=== PATIENT | male | born 1945 | race Caucasian/White ===

== ENCOUNTER 2017-02-19 14:39 | Emergency (ER) | payer MEDICARE ==
[~2017-02-19 14:39] MED LIST: ASA CHILDREN'S81 MG PO; ASPIRIN EC81 MG PO; ATIVAN-DPS1 MG PO; COLACE-DPS100 MG PO; COZAAR DPS25 MG PO; DESYREL-DPS50 MG PO; FLEXERIL-DPS10 MG PO; FLOMAX DPS0.4 MG PO; FLONASE 0.05% D16 GM NS; FOLVITE-DPS1 MG PO; HEPARIN-NS25000 UNIT IV; IMDUR DPS30 MG PO; LIPITOR DPS40 MG PO; LIPITOR40 MG PO; MAALOX DPS30 ML PO; MELATONIN3 MG PO; MINIPRESS DPS1 MG PO; NEURONTIN DPS300 MG PO; NICOTINE PATCH1 EAC1 TP; NITROSTAT0.4 MG SL; OCEAN NASAL MIS45 ML NS; PHENERGAN DPS25 MG PO; PLAVIX75 MG PO; PROTONIX40 MG PO; REMERON DPS15 MG PO; SPIRIVA18 MCG IH; TEARS NATURAL D15 ML OU; TOPROL XL DPS25 MG PO; TOPROL XL50 MG PO; TYLENOL DPS325 MG PO; VITAMIN B1100 MG PO; ZESTRIL DPS2.5 MG PO; ZOLOFT DPS100 MG PO
--- NOTE | 2017-02-27 11:03 | ER ---
ADMIT: 02/19/2017 RM/LOC: ER [facility] MR#: [id number] [address] [facility] [address] [place], [place] [address] PAULA SUMNER [address] [facility] [address] [place] [address] Emergency Room Report SEX: M AGE: 71 : 1945 DATE: 02/19/2017 CHIEF COMPLAINT: Dizziness, headache behind both ears, intermittent chest pain, and diarrhea. HISTORY OF PRESENT ILLNESS: This is a 71-year-old, who is [facility] [place]. He came over mostly for this headache and dizziness that he has been having. Then, also tells me about having diarrhea for couple weeks. Also having intermittent chest pain that he takes nitroglycerin for intermittently, but he says that is normal for him. He has multiple bypass and stents in his heart. At this time, he does not have any chest pain. No shortness of breath. When he describes the dizziness, he says it is just kind of vague dizziness, almost vertigo. Does not feel like he is going to pass out. Chest x-ray and EKG are negative for any acute findings over-read by Dr. Edmondson and Dr. Lemus. CMP is normal except for glucose of 60. CK-MB, relative index, and troponin are all normal. CBC is normal. EKG shows a left bundle-branch block over-read by Dr. Edmondson. No ST elevation or depression. The patient feels okay to go back to treatment. He does have the open sore also on his right great toe. I told to follow up with kaiako kura [facility] over at the [place] to further evaluate because it has not been healing. It has been there since November. IMPRESSION: 1. Intermittent headaches. 2. Diarrhea for 2 weeks. 3. Open sore on right great toe. DISPOSITION: Stable at discharge. [facility]. LESTER Pérez / Etienne Edmondson MD / chava JOB #: [id number] CC: Etienne Edmondson MD, Attending Physician [facility] Physician, Family Physician
[2017-03-31] MEDS ORDERED: PROTONIX40 MG PO (12:35)
[2017-03-31] MEDS ORDERED: ZESTRIL DPS2.5 MG PO (12:35)
[2017-03-31] MEDS ORDERED: MELATONIN3 M1 PO (12:36)
[2017-03-31] MEDS ORDERED: THERA1 EACH PO (12:36)
[2017-03-31] MEDS ORDERED: MUCOSA400 MG PO (12:36)
[2017-03-31] MEDS ORDERED: TOPROL XL25 MG PO (12:37)
[2017-03-31] MEDS ORDERED: TYLENOL DPS325 MG PO (12:38)
[2017-03-31] MEDS ORDERED: NORCO 5-325 TA1 EACH PO (12:39)
[2017-03-31] MEDS ORDERED: PROAIR HFA8.5 GM IH (12:39)
[2017-03-31] MEDS ORDERED: METAMUCIL SF P3.4 GM PO (12:40)
[2017-03-31] MEDS ORDERED: ULTRAM DPS50 MG PO (12:41)
[2017-04-11] MEDS ORDERED: ASPIR 8181 MG PO (14:04)
[2017-04-11] MEDS ORDERED: FOLVITE-DPS1 MG PO (14:04)
[2017-04-11] MEDS ORDERED: ATORVASTATIN CA80 MG PO (14:04)
[2017-04-11] MEDS ORDERED: PROAIR RESPICL90 MCG IH (14:04)
[2017-04-11] MEDS ORDERED: FLONASE 0.05% D16 GM NS (14:05)
[2017-04-11] MEDS ORDERED: IMDUR DPS60 MG PO (14:05)
[2017-04-11] MEDS ORDERED: ZESTRIL DPS10 MG PO (14:06)
[2017-04-11] MEDS ORDERED: METOPROLOL SUC100 MG PO (14:07)
[2017-04-11] MEDS ORDERED: SPIRIVA18 MCG PO (14:08)
[2017-04-11] MEDS ORDERED: ZOLOFT DPS100 MG PO (14:08)
[2017-04-11] MEDS ORDERED: VITAMIN B1100 MG PO (14:08)
[2017-04-11] MEDS ORDERED: PLAVIX75 MG PO (14:08)
[2017-04-11] MEDS ORDERED: NITROSTAT0.4 MG SL (14:09)
[2017-04-11] MEDS ORDERED: FLOMAX DPS0.4 MG PO (14:09)
[2017-04-11] MEDS ORDERED: NICOTINE PATCH1 EAC1 TD (14:09)
[2017-04-11] MEDS ORDERED: RANEXA500 MG PO (14:10)
[2017-04-11] MEDS ORDERED: PREDNISONE1 MG PO (14:10)
[2017-04-11] MEDS ORDERED: SYMBICORT160 MCG/6 IH (14:11)
[2017-04-11] MEDS ORDERED: ALDACTONE DPS25 MG PO (14:12)
== END 2017-02-19 15:45 | disposition home or self-care (01) ==
LOC: ER 14:39
DX: R51 Headache (principal); R19.7 Diarrhea, unspecified; I25.10 Atherosclerotic heart disease of native coronary artery without angina pectoris; F43.12 Post-traumatic stress disorder, chronic; F17.210 Nicotine dependence, cigarettes, uncomplicated

== ENCOUNTER 2017-03-29 09:06 | Inpatient (IN) | payer MEDICARE ==
[~2017-03-29] VITALS: Ht 167.6 cm; Wt 62.9 kg
[2017-03-31] MEDS ORDERED: ZESTRIL DPS2.5 MG PO (12:35)
[2017-03-31] MEDS ORDERED: PROTONIX40 MG PO (12:35)
[2017-03-31] MEDS ORDERED: THERA1 EACH PO (12:36)
[2017-03-31] MEDS ORDERED: MELATONIN3 M1 PO (12:36)
[2017-03-31] MEDS ORDERED: MUCOSA400 MG PO (12:36)
[2017-03-31] MEDS ORDERED: TOPROL XL25 MG PO (12:37)
[2017-03-31] MEDS ORDERED: TYLENOL DPS325 MG PO (12:38)
[2017-03-31] MEDS ORDERED: NORCO 5-325 TA1 EACH PO (12:39)
[2017-03-31] MEDS ORDERED: PROAIR HFA8.5 GM IH (12:39)
[2017-03-31] MEDS ORDERED: METAMUCIL SF P3.4 GM PO (12:40)
[2017-03-31] MEDS ORDERED: ULTRAM DPS50 MG PO (12:41)
--- NOTE | 2017-03-31 19:50 | DS ---
ADMIT: 03/29/2017 RM/LOC: [facility] MR#: [id number] [address] [facility] [address] [place], [place] [address] PAULA SUMNER [address] [place] [address] Discharge Summary SEX: M AGE: 71 : 1945 ADMISSION DATE: 03/29/2017 DISCHARGE DATE: 03/30/2017 ATTENDING AT TIME OF DISCHARGE: Gwyn Kirkpatrick MD CONSULTATIONS: None. FINAL DIAGNOSES: 1. Acute hypoxic respiratory failure. 2. Acute chronic obstructive pulmonary disease exacerbation. 3. Positive troponin, likely demand ischemia. 4. Coronary artery disease. 5. Peripheral vascular disease. 6. Hypertension. 7. Tobacco abuse, ongoing. 8. History of alcohol abuse with recent sobriety. REASON FOR ADMISSION: The patient is a 71-year-old gentleman, who presented to the emergency room with some severe substernal chest pain. Cough. Shortness of breath. He initially required some BiPAP in the ER actually. Admitted to the ICU. HOSPITAL COURSE: The patient was admitted. Given steroids, bronchodilators, some diuresis in the ER. Responded well to this and was able to be transitioned out of the ICU very quickly. Off BiPAP. He, on exam, had quite a bit of wheezing. This improved dramatically prior to discharge. He felt much improved with resolution of his chest pain. His troponin is only ever so slightly elevated. It did not trend upward. His chest pain completely resolved prior to discharge. He has planned followup with Cardiology at the [place] this next week. DISCHARGE INSTRUCTIONS: He will discharge to home. Follow up with his [place] provider within the next 7 to 10 days. Follow up with the [place] [facility] next week as previously planned. He will finish a course of steroids for the next 10 days, 40 mg of prednisone for 5 days and 20 mg for 5 days. He will not be on any antibiotics. Otherwise on his home medications. I gave him 60 tramadol for his rest pain he has for his peripheral vascular disease until he is in to get this procedure done for that, which he is working toward. The patient is agreeable to plan. Gwyn Kirkpatrick MD/ macarena JOB #: [id number] CC: Gwyn Kirkpatrick MD, Attending Physician Gwyn Kirkpatrick MD, Family Physician ADMIT: 03/29/2017 RM/LOC: [facility] MR#: [id number] [address] [address] SUMNERPAULA MORE [address] [place] [address] Discharge Summary SEX: M AGE: 71 : 1945 Gokul Fang NP
--- NOTE | 2017-03-31 19:50 | HP ---
ADMIT: 03/29/2017 RM/LOC: 310 [facility] MR#: [id number] [address] [facility] [address] [place], [place] [address] PAULA SUMNER [address] [place] [address] History and Physical SEX: M AGE: 71 : 1945 DATE OF SERVICE: CHIEF COMPLAINT: Chest pain. HISTORY OF PRESENT ILLNESS: The patient is a 71-year-old gentleman, normally receives all of his care through the [place], sees Gokul Davison. He was hospitalized here in January. At that time was taken down to [place], it sounds like, for heart catheterization. He thinks he had had a stent placed. Either way, over the last week or so, he has had increasing cough. Sputum production. Yellow a little bit. Some postnasal drip. This is new for him. Does not chronically have. He is a long-term smoker. Recently increasing his smoking, he states. He has had increasing chest pain now. Substernal. Pleuritic. No fevers. No chills. No nausea. No vomiting. States he is scheduled for a stress test and evaluation with street worker next week down in [facility]. PAST MEDICAL HISTORY: 1. Extensive coronary artery disease history. 2. Peripheral vascular disease with planned right-sided upcoming bypass. 3. History of CABG. 4. Tobacco abuse ongoing. 5. Hypertension. 6. Hyperlipidemia. 7. Depression. 8. BPH. 9. COPD. 10.GERD. 11.History of PTSD. ALLERGIES: NONE. MEDICATIONS: Please see list for full details. It includes: 1. Plavix. 2. Nitroglycerin. 3. Albuterol. 4. Hydrocodone that he really takes. 5. Spiriva. 6. Fluticasone. 7. Aspirin. 8. Pantoprazole. 9. Folic acid. 10.Lisinopril. 11.Multivitamin. 12.Melatonin. 13.Sertraline. 14.Guaifenesin. 15.Thiamine. 16.Atorvastatin. 17.Metoprolol. ADMIT: 03/29/2017 RM/LOC: 310 [facility] MR#: [id number] [address] [facility] [address] [place], [place] [address] SUMNERPAULA MORE [address] [place] [address] History and Physical SEX: M AGE: 71 : 1945 18.Tamsulosin. 19.Imdur. Please see list for full details and dosages. FAMILY HISTORY: Significant for coronary artery disease in his family. SOCIAL HISTORY: He usually drinks heavily, but he has been sober for two months. Longstanding smoker for many, many years. REVIEW OF SYSTEMS: As per HPI. Otherwise, completely reviewed and negative. PHYSICAL EXAMINATION: VITAL SIGNS: Temperature 97.2, pulse 71, respiratory rate 18, blood pressure 125/64, saturating 95% on O2 at 2 L. Previously on BiPAP. GENERAL: He is alert and oriented x3. No acute distress. Pleasant. HEENT: Normocephalic, atraumatic. Pupils equal, round, and reactive to light and accommodation. Extraocular muscles intact. No icterus. Dry mucous membranes. NECK: No lymphadenopathy. Soft, supple. Trachea midline. LUNGS: He has some rhonchi, especially in his left lower base the greatest. He has symmetric thoracic excursion. A few rales at bases present bilaterally. HEART: Regular rate and rhythm. He has 1/6 systolic ejection murmur. No rubs. No gallops. ABDOMEN: Soft, nontender, and nondistended. Bowel sounds present. EXTREMITIES: No cyanosis, clubbing, or edema. SKIN: He has a right-sided dime-sized ulcer on the dorsum of his right great toe. No surrounding erythema or secondary infection. NEUROLOGICAL: No focal deficits noted. Cranial nerves II through XII are grossly intact. VASCULAR: Dorsal pedal pulses very faint bilaterally. LABORATORY AND X-RAY DATA: His troponin is slightly positive, 0.044. White count 10.4, hemoglobin 13.6, platelets 157, potassium 3.6, lactic acid 1.5, proBNP is 5751. Procalcitonin is negative. Chest x-ray is reviewed. He has some initial markings. Mild cardiomegaly on portable film. No acute infiltrate noted. EKG; he has no acute ST elevation. He has a left bundle branch block. ASSESSMENT: 1. Acute chronic obstructive pulmonary disease exacerbation. 2. Acute hypoxic respiratory failure. 3. Coronary artery disease history. 4. Tobacco abuse. ADMIT: 03/29/2017 RM/LOC: 310 [facility] MR#: [id number] [address] [address] [place] [address] History and Physical SEX: M AGE: 71 : 1945 5. Positive troponin. 6. Peripheral vascular disease. 7. Hypertension. PLAN: At this point in time, we will treat his acute COPD exacerbation. I think his chest pain is all from his coughing and costochondritis, but we will trend his troponin given his extensive history for now. We will continue his home medications in regard to his heart disease. Give him some steroids. Start some tramadol for his chest pain he has for his peripheral vascular disease. We will see how he does in the next day or two. Initially required BiPAP in the ER, but now he looks much better. Initially admitted to the ICU. We will put him in tele status for now. Gwyn Kirkpatrick MD/ chava JOB #: [id number] CC: Gwyn Kirkpatrick, Attending Physician Gwyn Kirkpatrick, Family Physician
--- NOTE | 2017-04-03 07:29 | ER ---
ADMIT: 03/29/2017 RM/LOC: 310 [facility] MR#: [id number] [address] [facility] [address] [place], [place] [address] PAULA SUMNER [address] [place] [address] Emergency Room Report SEX: M AGE: 71 : 1945 DATE: 03/29/2017 CHIEF COMPLAINT: Shortness of breath. HISTORY OF PRESENT ILLNESS: The patient is a 71-year-old male, comes in with intermittent worsening shortness of breath over the past 2 days. He states that he was very short of breath throughout the night, did not particularly want to come in the hospital, but it finally got so bad that he did this morning. He did call EMS and en-route, he was given 2 DuoNeb prior to arrival and his symptoms were significantly improved by the time he got here. He states he does have some tightness in his chest, but he states he has a diagnosis of angina and has tightness in his chest very often and states he typically uses 3-4 nitros a day. He denies any fevers or chills. He is not having any nausea or vomiting, change in bowel or bladder function or new leg swelling. PAST MEDICAL HISTORY: Significant for coronary artery disease with previous non STEMI x2, COPD, hyperlipidemia, peripheral vascular disease, GERD, pneumonia, depression, PTSD, and ischemic cardiomyopathy. PREVIOUS SURGERIES: He has had a right lower extremity bypass graft, 5-vessel CABG in 1998, non STEMI in with stent placement, and another non STEMI in with stent placement, appendectomy and back surgery. MEDICATIONS: See nurse's note. ALLERGIES: SEE NURSE'S NOTE. SOCIAL HISTORY: Smokes pack a day. Alcohol, has a long history of alcohol, use but states he quit a little over a month ago. PHYSICAL EXAMINATION: See T-sheet. Chest x-ray shows what may be CHF and there is some questionable infiltrate. CBC shows a white count of 10.5, hemoglobin 13.6. Chemistries show potassium of 3.6, otherwise unremarkable. Lactic acid is 1.5. BNP is 5751 and troponin 0.044. EMERGENCY DEPARTMENT COURSE: The patient presented, he was short of breath but was reporting he was feeling much better after he had gotten the DuoNeb. With his history of COPD, I went ahead and got an IV started, gave him Solu- Medrol and our workup was reassuring to that point. It appears like he was having COPD exacerbation with mild CHF symptoms. At this point, his chest pain seemed like it was his standard angina and with the chest x-ray findings of possible infiltrate, he was given an IV dose of Levaquin. I had contacted the [place] to see if we could arrange for patient to transfer to their facility, but he began having worsening shortness of breath and chest pain. At that ADMIT: 03/29/2017 RM/LOC: 310 [facility] MR#: [id number] [address] [place] [id number] [place] [address] Emergency Room Report SEX: M AGE: 71 : 1945 time, I got a repeat EKG and checked troponin and gave the patient nitroglycerin and aspirin. At this point, I am not comfortable having the patient being transferred to the [place] so we will be keeping him in our facility. He was given a dose of IV Lasix in the Emergency Department and placed on BiPAP which did significantly improve his shortness of breath. I contacted Dr. Kirkpatrick who is on for city call, who graciously agrees to admit the patient. DIAGNOSES: 1. Chronic obstructive pulmonary disease exacerbation. 2. Congestive heart failure. 3. Angina. 4. Shortness of breath. Ever Choudhary MD/ chava JOB #: [id number] CC: Gwyn Kirkpatrick MD, Attending Physician Gwyn Kirkpatrick MD, Family Physician
[2017-04-11] MEDS ORDERED: FOLVITE-DPS1 MG PO (14:04)
[2017-04-11] MEDS ORDERED: ASPIR 8181 MG PO (14:04)
[2017-04-11] MEDS ORDERED: PROAIR RESPICL90 MCG IH (14:04)
[2017-04-11] MEDS ORDERED: ATORVASTATIN CA80 MG PO (14:04)
[2017-04-11] MEDS ORDERED: FLONASE 0.05% D16 GM NS (14:05)
[2017-04-11] MEDS ORDERED: IMDUR DPS60 MG PO (14:05)
[2017-04-11] MEDS ORDERED: ZESTRIL DPS10 MG PO (14:06)
[2017-04-11] MEDS ORDERED: METOPROLOL SUC100 MG PO (14:07)
[2017-04-11] MEDS ORDERED: VITAMIN B1100 MG PO (14:08)
[2017-04-11] MEDS ORDERED: ZOLOFT DPS100 MG PO (14:08)
[2017-04-11] MEDS ORDERED: PLAVIX75 MG PO (14:08)
[2017-04-11] MEDS ORDERED: SPIRIVA18 MCG PO (14:08)
[2017-04-11] MEDS ORDERED: NICOTINE PATCH1 EAC1 TD (14:09)
[2017-04-11] MEDS ORDERED: FLOMAX DPS0.4 MG PO (14:09)
[2017-04-11] MEDS ORDERED: NITROSTAT0.4 MG SL (14:09)
[2017-04-11] MEDS ORDERED: PREDNISONE1 MG PO (14:10)
[2017-04-11] MEDS ORDERED: RANEXA500 MG PO (14:10)
[2017-04-11] MEDS ORDERED: SYMBICORT160 MCG/6 IH (14:11)
[2017-04-11] MEDS ORDERED: ALDACTONE DPS25 MG PO (14:12)
== END 2017-03-30 12:30 | disposition home or self-care (01) | DRG 189 ==
LOC: ER 09:06 → 3ICU 13:55 → 4PCU 22:39
PROVIDERS: ADMIT Internal Medicine
DX: J96.01 Acute respiratory failure with hypoxia (principal); I24.8 Other forms of acute ischemic heart disease; J44.1 Chronic obstructive pulmonary disease with (acute) exacerbation; I25.119 Atherosclerotic heart disease of native coronary artery with unspecified angina pectoris; I73.9 Peripheral vascular disease, unspecified; I10 Essential (primary) hypertension; I25.2 Old myocardial infarction; F17.210 Nicotine dependence, cigarettes, uncomplicated; N40.0 Benign prostatic hyperplasia without lower urinary tract symptoms; E78.5 Hyperlipidemia, unspecified; K21.9 Gastro-esophageal reflux disease without esophagitis; F32.9 Major depressive disorder, single episode, unspecified; F43.10 Post-traumatic stress disorder, unspecified; I25.5 Ischemic cardiomyopathy; Z95.1 Presence of aortocoronary bypass graft; Z95.5 Presence of coronary angioplasty implant and graft; Z79.82 Long term (current) use of aspirin; Z82.49 Family history of ischemic heart disease and other diseases of the circulatory system

== ENCOUNTER 2017-04-06 21:04 | Inpatient (IN) | payer MEDICARE ==
[~2017-04-06] VITALS: Ht 167.6 cm; Wt 64.3 kg
[~2017-04-06 21:04] MED LIST changes: +MELATONIN3 M1 PO; +METAMUCIL SF P3.4 GM PO; +MUCOSA400 MG PO; +NORCO 5-325 TA1 EACH PO; +PROAIR HFA8.5 GM IH; +THERA1 EACH PO; +TOPROL XL25 MG PO; +ULTRAM DPS50 MG PO
--- NOTE | 2017-04-07 20:11 | ER ---
ADMIT: 04/06/2017 RM/LOC: 432 [facility] MR#: [id number] [address] [facility] [place], [place] [address] PAULA SUMNER [id number] [place] [address] Emergency Room Report SEX: M AGE: 71 : 1945 DATE: 04/06/2017 CHIEF COMPLAINT: Right upper quadrant abdominal pain. HISTORY OF PRESENT ILLNESS: The patient is a 71-year-old male with significant coronary artery disease, recent hospitalization for non-STEMI on March 29 through , follow up at the [facility], where the patient is pending bilateral carotid endarterectomy, right femoral-popliteal bypass. Last hospitalized April 2016 for non STEMI, transferred to [facility] where he underwent a PTCA to in-stent stenosis, vein graft to the right posterior and diagonal artery. The patient continues to smoke up to a pack a day. The patient states he was eating a burrito and he developed right upper quadrant abdominal pain radiating to his back associated with increasing shortness of breath, left arm tingling. He took a nitro, trazodone, and hydrocodone before paramedics arrived, who then gave aspirin 324 mg chewed, and another nitroglycerin with slight improvement. The pain at max was 7, on arrival was 3. The patient states it feels similar though slightly different location than his previous angina. PAST MEDICAL HISTORY: ALLERGIES: NONE. MEDICATIONS: 1. Tylenol. 2. Artificial Tears. 3. Aspirin. 4. Lipitor. 5. Plavix. 6. Colace. 7. Folic acid. 8. Guaifenesin. 9. Imdur. 10.Lisinopril. 11.Imodium. 12.Melatonin. 13.Metoprolol. 14.Multivitamin. 15.Nitroglycerin patch. 16.Nitroglycerin p.r.n. 17.Protonix. 18.Sertraline. 19.Flomax. 20.Thiamine. 21.Spiriva. ILLNESSES: Coronary artery disease with recent echo showing EF of 15%, CHF, recent non-STEMI and previous non-STEMI, remote past carotid occlusive disease, gastric ulcer, GERD, hypertension, hyperlipidemia, COPD, chronic ADMIT: 04/06/2017 RM/LOC: 432 [facility] MR#: [id number] [address] [facility] [address] [place], [place] [address] [facility] [address] [facility] [place] [address] Emergency Room Report SEX: M AGE: 71 : 1945 nicotine abuse, chronic pain syndrome, PTSD with alcohol abuse, BPH, depression. Known left bundle-branch block. OPERATIONS: Coronary artery bypass x3 in 1998, FELIZ to LAD, FELIZ to OM and vein graft to RCA; PCI stent LAD, requiring intraaortic balloon pump, stent to vein graft, PDA in 2014, and PTCA to in-stent stenosis, right PDA in 2016; peripheral vascular disease with aortic bifemoral bypass and ligation of left common iliac aneurysm 1998; left common femoral artery thrombectomy, [place]-Robert graft to the left external iliac to the left common femoral artery in 1998; appendectomy; hemorrhoidectomy; bilateral carpal tunnel release; lumbar laminectomy with hardware; pilonidal cystectomy. SOCIAL HISTORY: . Continues to smoke with over 50-pack year history. Alcohol abuse, none recently. No illicit drugs. FAMILY HISTORY: Positive for coronary artery disease, both over and under age 55. REVIEW OF SYSTEMS: A 12-point review of systems negative for all other systems, illnesses, or operations except as outlined above. PHYSICAL EXAMINATION: VITAL SIGNS: Temperature 97.4, pulse 100, respirations 16, BP 122/86, SaO2 of 96% on room air. GENERAL: Anxious, nontoxic, non-diaphoretic without jaundice or icterus. HEENT: Normocephalic. No evidence of epistaxis, rhinorrhea, or otorrhea. NECK: Supple without lymphadenopathy or thyromegaly. CHEST: Breath sounds equal with expiratory wheeze noted throughout right greater than left. HEART: Tachy. Irregular without murmur, gallop, or edema. ABDOMEN: Slightly obese. Tender right upper quadrant reproducing chief complaint without mass or megaly. Bowel sounds hypoactive. EXTREMITIES: No evidence of Homans sign, synovitis, or dermatitis. NEURO: EOMI, PERRLA. No evidence of drift, dysarthria, or ataxia. Gait not assessed. MENTAL STATUS: Alert, oriented, and anxious without delusions, hallucinations, or abnormal thought content. MEDICAL DECISION MAKING: EKG shows atrial fibrillation with rapid ventricular response, left bundle-branch block, left atrial enlargement, only change is atrial fibrillation since 03/29/2017. Chest x-ray shows COPD. FINDINGS: WBC 13.9, hemoglobin 13.3, platelets 245, lactic 1.9, CRP 0.42, potassium 3.4, glucose 116, troponin 0.063, elevated from 0.042 last hospitalization, normal coags. The patient was treated with Zofran, Toradol, and Dilaudid with relief of discomfort. Solu-Medrol, magnesium, 2 DuoNebs with marked improvement of his respiratory distress. ACS heparin was initiated in department. Remainder of ADMIT: 04/06/2017 RM/LOC: 432 [facility] MR#: [id number] [address] [address] [place] [address] Emergency Room Report SEX: M AGE: 71 : 1945 amiodarone that paramedics initiated was infused with no conversion or significant slowing. Discussed case with Dr. Parekh, who agreed to admit, gave orders to nursing staff. Due to the patient's presentation, findings, and intervention, 30 minutes of critical care is warranted. DIAGNOSES: 1. Acute exacerbation of chronic obstructive pulmonary disease. 2. Type 2 myocardial infarction. 3. Severe peripheral vascular disease, pending bilateral carotid endarterectomy, and right femoral-popliteal bypass. RECOMMENDATION: Admit inpatient PCU for Dr. Parekh. ADMISSION DISCHARGE CONDITION: Stable. CODE: The patient is a full code. Misael Sousa MD/ shawnl JOB #: [id number] CC: Gal Parekh MD, Attending Physician Gal Parekh MD, Family Physician
[2017-04-11] MEDS ORDERED: PROAIR RESPICL90 MCG IH (14:04)
[2017-04-11] MEDS ORDERED: ATORVASTATIN CA80 MG PO (14:04)
[2017-04-11] MEDS ORDERED: ASPIR 8181 MG PO (14:04)
[2017-04-11] MEDS ORDERED: FOLVITE-DPS1 MG PO (14:04)
[2017-04-11] MEDS ORDERED: FLONASE 0.05% D16 GM NS (14:05)
[2017-04-11] MEDS ORDERED: IMDUR DPS60 MG PO (14:05)
[2017-04-11] MEDS ORDERED: ZESTRIL DPS10 MG PO (14:06)
[2017-04-11] MEDS ORDERED: METOPROLOL SUC100 MG PO (14:07)
[2017-04-11] MEDS ORDERED: SPIRIVA18 MCG PO (14:08)
[2017-04-11] MEDS ORDERED: VITAMIN B1100 MG PO (14:08)
[2017-04-11] MEDS ORDERED: PLAVIX75 MG PO (14:08)
[2017-04-11] MEDS ORDERED: ZOLOFT DPS100 MG PO (14:08)
[2017-04-11] MEDS ORDERED: NICOTINE PATCH1 EAC1 TD (14:09)
[2017-04-11] MEDS ORDERED: FLOMAX DPS0.4 MG PO (14:09)
[2017-04-11] MEDS ORDERED: NITROSTAT0.4 MG SL (14:09)
[2017-04-11] MEDS ORDERED: RANEXA500 MG PO (14:10)
[2017-04-11] MEDS ORDERED: PREDNISONE1 MG PO (14:10)
[2017-04-11] MEDS ORDERED: SYMBICORT160 MCG/6 IH (14:11)
[2017-04-11] MEDS ORDERED: ALDACTONE DPS25 MG PO (14:12)
--- NOTE | 2017-04-12 16:17 | HP ---
ADMIT: 04/06/2017 RM/LOC: 432 [facility] MR#: [id number] [address] [facility] [place], [place] [address] PAULA SUMNER [address] [facility] [place] [address] History and Physical SEX: M AGE: 71 : 1945 DATE OF SERVICE: 04/07/2017 HISTORY OF PRESENT ILLNESS: Mr. Pancho Sumner is a 71-year-old man with past medical history significant for coronary artery disease status post multivessel CABG as well as PCI and history of stent thrombosis, alcohol abuse, and tobacco abuse, COPD, PTSD, depression, hypertension, peripheral artery disease status post bypass, BPH, heart failure with reduced ejection fraction of 20-15% who presents to the emergency room via ambulant with increasing chest pressure and pain. The patient states that he was in his usual state of health until yesterday when he noticed that in the early afternoon he was having some chest pressure or pain. He states that he then had another episode when he was eating supper at about 4-5 p.m. and got some numbness in his back with some radiation to the right shoulder. He states that it is similar to his previous cardiac pain before. The chest pain is present with activity and can be present when he is moving around a bit as well. He also states that he feels like it might be somewhat his COPD exacerbations in the past although he is using minimal oxygen at this point in time. He does state that he did cut down on his cigarettes within the last week, but then recently over the last couple of days has started to use more cigarettes again. He is currently up to a pack per day. He has been better about taking his inhalers for his COPD lately. He was recently hospitalized here on 03/29 to 03/30 for a COPD exacerbation. At that point in time, he was needing BiPAP initially and then improved with IV steroids as well as aggressive pulmonary toilet. He did have some chest pain at that point in time, but it was mainly reproducible on exam. He did have a slight elevation in his troponin that was thought to be secondary to demand ischemia. He was discharged on 03/30/2017 and then had an appointment [facility] with Dr. Ramirez. This occurred 04/02 to 04/03. He states that they did not repeat a stress test or catheterization on him at that point in time, because they had found records from a few months ago where he had these done. He states that Dr. Ramirez told him that he may need to be evaluated for an ICD. He states that when he was at home with this new chest pain, he took a nitroglycerin as well as hydrocodone and trazodone. This did not seem to alleviate his symptoms, so he called EMS. EMS provided him with 2 nitroglycerin as well as 4 baby aspirin. He also received a loading dose of amiodarone as he is noted to have intermittent SVT. On arrival into our emergency department, his vital signs were as follows. Blood pressure 122/86, heart rate of 100 in atrial fibrillation, respirations 16, temperature of 97.4 Fahrenheit and saturating at 96% on room air. In the emergency room, he was given 2 g of IV magnesium as well as 125 mg of IV Solu- Medrol, Dilaudid, Zofran, and Toradol. He was admitted for his continued chest pain given his extensive cardiac history. Review of records indicates that he was seen by [facility] in [place] on approximately 02/05/2017 for an NSTEMI. He thinks that they placed a stent. However, reading the records it appears that he did have a heart catheterization and did have extensive blockage of several vessels but no stents were placed at that point in time. Medical therapy was provided to the patient. PAST MEDICAL HISTORY: 1. Hypertension. ADMIT: 04/06/2017 RM/LOC: 432 [facility] MR#: [id number] [address] [facility] [address] [place] [id number] PAULA SUMNER [address] [place] [address] History and Physical SEX: M AGE: 71 : 1945 2. Coronary artery disease, status post CABG in 1998, PCI in 2014 and stent thrombosis in 2015. History of alcohol abuse and tobacco abuse. 3. Peripheral arterial disease with. an aorto-bifemoral bypass in 1998. 1. Heart failure with reduced EF. Last echocardiogram demonstrating ejection fraction of 15-20%. 2. COPD. 3. PTSD. 4. Depression. 5. Peptic ulcer disease. 6. BPH. PAST SURGICAL HISTORY: 1. Appendectomy. 2. Coronary arterial bypass graft. 3. History of back surgery. 4. Hemorrhoidectomy. 5. Carpal tunnel. HOME MEDICATIONS: At this point in time, the patient is takin. Albuterol 4 times daily inhaler for COPD. 2. Atorvastatin 80 mg daily. 3. Aspirin 81 mg daily. 4. Folic acid 1 mg daily. 5. Fluticasone propionate 50 mcg inhaled daily. 6. Isosorbide mononitrate 60 mg twice daily. 7. Lisinopril 5 mg daily. 8. Metoprolol 50 mg daily. 9. Sertraline 100 mg daily. 10.Thiamine 100 mg daily. 11.Tiotropium 18 mcg daily inhaled, he does take acetaminophen as needed for pain. 12.The patient states that he has been taking clopidogrel bisulfate 75 mg daily, although his daughter did cookie as not being taken. 13.Guaifenesin 100 mg four times daily. 14.[place] at bedtime as needed. 15.Melatonin for sleep. 16.Multivitamin. 17.Nicotine patch. 18.Nitroglycerin 0.4 mg. 19.Pantoprazole 40 mg daily. 20.Psyllium fiber daily. 21.Tamsulosin daily. The patient states that he did not have the tamsulosin, [facility] Clopidogrel, guaifenesin, [place], melatonin, nicotine patch, nitroglycerin, pantoprazole, psyllium powder, and tamsulosin were all marked by his daughter as having not been taken daily. ADMIT: 04/06/2017 RM/LOC: 432 [facility] MR#: [id number] [address] [facility] [address] [place], [place] [address] PAULA SUMNER [address] [facility] [place] [address] History and Physical SEX: M AGE: 71 : 1945 ALLERGIES: HE HAS NO KNOWN MEDICAL ALLERGIES. FAMILY HISTORY: The patient does state that his mother passed from heart disease. She initially developed heart disease at age 44 and did have a heart attack as well as open heart surgery. He also states that his sister who is 60 at the time did have a procedure he says it was open-heart surgery, and she did not make it to that operation. He states that he is not in great contact with his brother who lives in [place] but from what he knows his brother is healthy. He states that his children are all healthy at this point in time. SOCIAL HISTORY: He is currently using one pack of cigarettes per day over the last week. Recently did cutdown to 5 cigarettes per day but then increased. Alcohol use, he quit using alcohol approximately 2 months ago. He denies any other illicit drugs. He denies IV drug use. He states that he did have a [employer] most recently, but has been retired since approximately 1999. He currently is living in his own home with his daughter. He enjoys bowling, swimming, and golfing in his free time. REVIEW OF SYSTEMS: No other pertinent review of system. He does endorse having some insomnia and some pain in his toe that is a result of a recent wound that is now healing. He also thinks that he needs some tamsulosin given that he feels like he is retaining urine. All other review of systems is negative. PHYSICAL EXAMINATION: VITAL SIGNS: Temperature of 96.5, heart rate of 81 with regular rate and rhythm. Blood pressure 123/67, respiration rate of 18, saturating 95% on 2 L nasal cannula. Weight 65 kg, which is up 3 kg from his previous admission from March 29 to . GENERAL: The patient is resting comfortably in the exam room bed. He does not appear to be dyspneic. He appears distressed secondary to concern about his chest pain. HEENT: Normocephalic, atraumatic. Hearing intact to conversation. Extraocular eye muscles are intact. He has normal white sclerae and normal pink conjunctiva. Nose is midline. He does have moist mucous membranes. LUNGS: He does have some wheezing noted on the right side of his lung more notably in the apices compared to base. Otherwise lungs are clear to auscultation, and he has adequate breath sounds throughout. HEART: He has regular rate and rhythm at this point in time. He does not have any murmurs detected. No JVD was detected. He does have some pedal edema bilaterally. It is approximately 1+. ABDOMEN: Soft. It is distended. He does have some abdominal pain located in the right upper quadrant. EXTREMITIES: Warm and well perfused. He does have decreased pulses bilaterally in the lower extremities but they are again warm. He does have a healing ulcer on the dorsal surface of his right big toe. There is no purulent drainage from this area. He does have some bilateral pitting edema as noted above. NEUROLOGIC: Appears to be intact grossly. PSYCH: He is appropriately worried ADMIT: 04/06/2017 RM/LOC: 432 [facility] MR#: [id number] [address] [place] [id number] [facility] [address] [address] History and Physical SEX: M AGE: 71 : 1945 and concerned. Normal affect and mood that are both congruent. LAB AND IMAGING: On admission, the patient was noted to have a white count of 13.9, hemoglobin of 13.3 with normal MCV and platelets of 245. Potassium of 3.4, bicarb 27, creatinine 0.8 and calcium of 8.3. He was also noted to have AST of 39, ALT of 99, alkaline phosphatase of 59, and total bilirubin 0.4. This morning, his CMP today is grossly unchanged with the potassium is 3.6 this morning, and he has a glucose of 233, and creatinine of 1.0. Otherwise, it is fairly unchanged. In the emergency room, he did have a proBNP, which was 8188. Lactic acid of 1.9 and INR of 1.13. His lipase was 150. His UA was negative. His initial troponin was 0.063 and has trended up to 0.231. He had a chest x-ray that demonstrated hyperinfiltration but no evidence of pneumonia. He has also had an ultrasound of his abdomen that did demonstrate cholelithiasis without ductal dilatation and absence of Vogt sign. He did have noted abdominal aortic aneurysm measuring 2.5 cm in diameter. ASSESSMENT AND PLAN: Mr. Sumner is a 71-year-old man with significant past cardiac history including history of coronary artery disease status post bypass, PCI as well as stent thrombosis, heart failure with reduced EF, peripheral arterial disease, hypertension, continued tobacco abuse and recent cessation from alcohol with history of abuse of alcohol, COPD, PTSD, and depression who presents to our emergency room with chest pain. He is not particularly short of breath at this point in time considering his last exacerbation of COPD was approximately one week ago. He at that point in time did need BiPAP. At this point in time, he saturating at 2.5 L well. He has received some steroids and will be initiated on antibiotics. Given his extensive coronary artery disease, concern is for acute coronary syndrome. This is supported by his troponins of 0.0231 on most recent check with continued up trend compared to the 1st. 1. Chest pain. At this point in time, the concern is that he is having an acute coronary syndrome. He also has a history of COPD, so we will treat him aggressively with steroids and antibiotics. We will also provide him with some Lasix given the fact that he does have a history of congestive heart failure and that his weight is up as well as a proBNP of 8000. We will initiate the ACS protocol. He has been placed on heparin drip. We will also order for him to be loaded with Plavix and then continue his Plavix 75 mg daily thereafter. He has received nitroglycerin as well as a nitroglycerin drip. He was recently seen by [facility] in [place] and was noted to have several complete blockages of several of his grafts. At that point in time, they opted for medical treatment. Since he continues to have episodes of chest pain with this elevation in his troponin, he may need to have further intervention. We will consult Cardiology for further assessment and assistance with his management. 2. History of COPD with acute hypoxic respiratory failure. The patient states that at home he does not use any oxygen. Right now, he is currently utilizing 2.5 L and is at 95% on 2.5 L nasal cannula. We will continue his home COPD regimen. He is to get DuoNeb every 4 hours as needed. He is also receiving Solu-Medrol with initial loading dose of 125 ADMIT: 04/06/2017 RM/LOC: 432 [facility] MR#: [id number] [address] [address] SUMNERPAULA MORE MARICRUZ [address] [place] [address] History and Physical SEX: M AGE: 71 : 1945 mg IV. Currently, he is getting Solu-Medrol 40 mg IV b.i.d. He is also receiving doxycycline IV b.i.d. We will obtain a procalcitonin at this point in time as well as a respiratory viral panel to further evaluate whether he has a viral or bacterial etiology for his increased oxygen requirements. I suspect that his increased oxygen requirements are actually secondary to potential ACS as listed in number one. We will continue to monitor his oxygen status and provide supportive therapy for his COPD. 3. Chronic heart failure reduced EF. The patient states that his most recent EF was 15%. From records, it appears that he has an EF of 20-25% noted in January of 2017. We will place him on a 2 g sodium restricted diet as well as a 2 L fluid restriction. We will also provide him with 40 mg of IV Lasix at this point in time given that he does have some pedal edema. This could also potentially help his respiratory status. We will replete his potassium and provide him with additional magnesium given the fact that he is potentially having an acute coronary syndrome. 4. Right upper quadrant pain with slight elevation in his hepatocellular enzymes. He is noted to have cholelithiasis without ductal dilatation and negative Vogt sign on his ultrasound that was obtained today. We will continue to monitor his LFTs. At this point in time, we need to deal 1st with potential ACS and can later consider surgical intervention for possible symptomatic cholelithiasis. 5. Hyperglycemia. We will provide him with a low-dose sliding scale at this point in time. I suspect that his hyperglycemia secondary to the steroids that he has been receiving for his respiratory status. 6. Healing wound on his dorsal surface of his right great toe. We will consult wound care as needed. At this point in time, continue to place Betadine over the area. 7. BPH. We will resume his home tamsulosin in the hopes of trying to help with his complaint of urinary retention. 8. Tobacco abuse. We will place him on a 14 mg nicotine patch as well as provide gum. He was again counseled that he needs to quit smoking and it appears that his last hospitalization was in the setting of having increased tobacco use and once again this hospitalization is in the setting of him also having increased tobacco use from 5 cigarettes today back to 1 pack per day. Shannon Christian MD Resident / Gal Parekh MD / chava JOB #: [id number] CC: Gal Parekh, Attending Physician Gal Parekh, Family Physician
--- NOTE | 2017-04-15 15:33 | CO ---
ADMIT: 04/06/2017 RM/LOC: 432 [facility] MR#: [id number] [address] [facility] [address] [place], [place] [address] PAULA SUMNER [address] [facility] [address] [facility] [place] [address] Consultation SEX: M AGE: 71 : 1945 DATE OF CONSULTATION: 04/07/2017 ATTENDING PHYSICIAN: Gal Parekh CONSULTING PHYSICIAN: Ricardo Dai MD CHIEF COMPLAINT: Chest tightness, coronary artery disease, and shortness of breath. HISTORY OF THE PRESENT ILLNESS: The patient is a 71-year-old male, well known to us with a previous history of coronary artery disease and bypass surgery, peripheral vascular disease and carotid disease. He states that in the last couple of weeks, he has noticed that he has felt like he has been more short of breath. This has been more of a problem with activity but could even occur at rest. He also has some chest tightness. He states these symptoms got a lot worse yesterday, so he came to the hospital and subsequently been admitted. During that time, he was noted to have mildly elevated troponin. We were asked to see him for further evaluation. In speaking with him this afternoon, he states that he is having a little bit of chest tightness. He still has some shortness of breath. He denies any edema in his legs and has had no other associated symptoms. The patient has a known history of coronary artery disease, recently having had a heart catheterization performed in [place] in January. At that time, he was noted to have occluded lytton coronary arteries with patent grafts. Medical management was recommended at that time. He then has been in detox for alcohol abuse and states that he has not had any alcohol in 60+ days. He had no other complaints. PAST MEDICAL HISTORY: Significant for: 1. Bypass surgery performed in 1998. At this point he is known to have a vein graft to RCA, KINGS to the circumflex, and a FELIZ to the LAD, which are all patent. 2. Severe carotid stenosis. 3. Peripheral vascular disease with previous stenting. 4. History of [id number]-[id number] elevated myocardial infarctions. 5. Hyperlipidemia. 6. Hypertension. 7. History of alcohol abuse. 8. Tobacco abuse. 9. COPD. 10.PTSD. 11.Gastric ulcer. 12.Depression. 13.History of a stent in the past in October of 2014. 14.Hemorrhoid surgery. 15.Appendectomy. 16.Back surgery. 17.Carpal tunnel surgery. ADMIT: 04/06/2017 RM/LOC: 432 [facility] MR#: [id number] [address] [address] [place] [address] Consultation SEX: M AGE: 71 : 1945 18.Pilonidal cyst removal. ALLERGIES: NONE. FAMILY HISTORY: Significant for mother who at age 46 of coronary disease and a sister at age 63 of coronary disease. His father of leukemia. SOCIAL HISTORY: The patient has had significant alcohol abuse in the past, but states that he has not had any alcohol in the last 60 days. He has a 56 pack year history of smoking. He has also used multiple other drugs in the past. HOME MEDICATIONS: 1. Albuterol inhaler 4 times daily. 2. Atorvastatin 80 mg at bedtime. 3. Aspirin 81 mg daily. 4. Folate 1 mg daily. 5. Fluticasone 50 mcg daily. 6. Isosorbide mononitrate 60 mg b.i.d. 7. Lisinopril 5 mg daily. 8. Metoprolol succinate 50 mg daily. 9. Sertraline 100 mg daily. 10.Thiamine 100 mg daily. 11.Ipratropium 1 dose daily. 12.Acetaminophen 325 mg 3 times daily as needed. 13.Clopidogrel 75 mg daily. 14.Guaifenesin 400 mg 4 times daily. 15.Clindamycin 300 mg every 6 hours for 10 day course. 16.Hydrocodone 5/325 at nighttime as needed. 17.Melatonin 3 mg 3 tablets at night. 18.Multivitamin daily. 19.Pantoprazole 40 mg daily. 20.Flomax 0.4 mg daily. REVIEW OF SYSTEMS: GENERAL: Denies fatigue, fever, chills, sweats, rash, or weight loss. EYES: Denies blurred vision, cataracts, or glaucoma. He does have some vision problems. ENT: Denies problems with nose, mouth or throat. He has some difficulty with hearing. PULMONARY: Denies sputum production, asthma, emphysema or bronchitis. Denies snoring loudly, wakefulness at night, or fatigue upon awakening. He has had some shortness of breath. He has had a cough. He has had chest tightness and pain. GASTROINTESTINAL: Denies heartburn or difficulty swallowing. No change in bowel habits. Denies dark or bloody stools. No history of ulcers, hiatal hernia, or gallbladder or liver disease. GENITOURINARY: Denies dysuria, hematuria, nocturia, urinary tract infection, ADMIT: 04/06/2017 RM/LOC: 432 [facility] MR#: [id number] [facility] [address] [address] [place] [address] Consultation SEX: M AGE: 71 : 1945 or kidney stones. Denies history of renal insufficiency or failure. MUSCULOSKELETAL: Denies history of arthritis or gout. He has had some arm and leg pains. ENDOCRINE: Denies history of thyroid dysfunction or diabetes. HEMATOLOGIC: Denies history of anemia, easy bruising, or cancer. NEUROLOGIC: Denies chronic headaches, dizziness, syncope, stroke, seizures or numbness or tingling. PSYCHIATRIC: Denies history of mental illness or feelings of depression. PHYSICAL EXAMINATION: VITAL SIGNS: Blood pressure was 123/67, heart rate 81, respirations 18, and temperature 96.5 degrees Fahrenheit. SKIN: [place], warm and dry. EYES: Sclerae clear. No xanthelasmas. ENT: Oral mucosa is pink and moist. No jugular venous distention or carotid bruits. CHEST: Respirations are even and unlabored. Lungs having diminished breath sounds and a few scattered wheezes. HEART: Regular rate and rhythm. Normal S1, S2. No murmurs, rubs or gallops. ABDOMEN: Soft and nontender. MUSCULOSKELETAL: Gait is normal. EXTREMITIES: Peripheral pulses palpable. No clubbing, cyanosis or edema. PSYCHIATRIC: Alert and oriented. Mood and affect are appropriate. ASSESSMENT: 1. Chest pain. 2. History of coronary artery disease. 3. Shortness of breath. 4. Chronic obstructive pulmonary disease. 5. Peripheral vascular disease. 6. Carotid occlusive disease. 7. Hypertension. PLAN: At this point, we will do further evaluation of his enzymes. He has had multiple enzyme elevations in the past and these are also only mildly elevated. He did have a heart catheterization done a couple of months ago ADMIT: 04/06/2017 RM/LOC: 432 [facility] MR#: [id number] [facility] [address] [address] SUMNERPAULA MORE [address] [place] [address] Consultation SEX: M AGE: 71 : 1945 which showed no new obstructive disease in the grafts with lytton artery occlusive disease. If he continues to have symptoms, we may need to consider repeat heart catheterization. I am going to start him on Ranexa 1000 mg b.i.d. in addition to his other medications to see if this also helps with his symptoms. He is going to need to see Vascular Surgery both for his peripheral vascular disease as well as his critical carotid disease. He is not being followed by our vascular surgeons. He has an ischemic cardiomyopathy and apparently was evaluated at the [place] for possibility of having an ICD placed, but I have no records that show that. We will decide further management as we go. Ricardo Dai MD/ chava JOB #: [id number] CC: Gal Parekh, Attending Physician Gal Parekh, Family Physician Thad Hdz MD
--- NOTE | 2017-04-19 13:15 | DS ---
ADMIT: 04/06/2017 RM/LOC: [address] [facility] MR#: [id number] [address] [place], [place] [address] PAULA SUMNER [id number] [place] [address] General Discharge Summary SEX: M AGE: 71 : 1945 ADMISSION DATE: 04/06/2017 DISCHARGE DATE: 04/10/2017 FINAL DIAGNOSES: 1. Chest pain. 2. Shortness of breath. 3. Chronic obstructive pulmonary disease with exacerbation. 4. Rhinovirus pneumonia. 5. Coronary artery disease. 6. Atrial fibrillation. 7. Diabetes. 8. Chronic systolic congestive heart failure. 9. History of alcohol and tobacco abuse, mildly elevated troponin. REASON FOR ADMISSION: See dictated H and P, but briefly, this is a 71-year- old gentleman, presented with shortness of breath. HOSPITAL COURSE: He was admitted, had mild elevation of troponin, was put on heparin. Cardiology consult obtained. Their evaluation did not feel he was having any acute coronary syndrome. Respiratory virus panel revealed a positive Rhinovirus result, changes consistent with a viral-type pneumonia and he was on antibiotics and this was weaned off. DISCHARGE MEDICATIONS: By the day of discharge, he was feeling better and was set up to be discharged to home with these antibiotics. 1. Aspirin 81 mg daily. 2. Prednisone taper of 20 mg for the next 2 days and then 10 mg for 7 days after that. 3. Flomax 0.4 mg daily. 4. Folic acid 1 mg daily. 5. Imdur 60 mg b.i.d. 6. Lipitor 80 mg at bedtime. 7. Plavix 75 mg daily. 8. Ranexa 1000 mg b.i.d. 9. Toprol-XL 50 mg daily. 10.Thiamine 100 mg daily. 11.Zestril 5 mg daily. 12.Zoloft 100 mg daily. ADMIT: 04/06/2017 RM/LOC: [address] [facility] MR#: [id number] [address] [facility] [address] [place], [place] [address] PAULA SUMNER [address] [place] [address] General Discharge Summary SEX: M AGE: 71 : 1945 13.Symbicort which is what he has at home 160/4.5, two puffs b.i.d. 14.Spiriva 18 mcg one puff daily. 15.Flonase inhaler nasal sprays daily p.r.n. 16.Habitrol nicotine patch 14 mg daily. 17.Nitroglycerin 0.4 mg q.5 minutes p.r.n. 18.Spironolactone 25 mg daily, #30. DISCHARGE INSTRUCTIONS: [facility] 2 [facility]. I would like him to have a BMP in 1 to 2 weeks because we started the spironolactone. Gal Parekh MD/ chava JOB #: [id number] CC: Gal Parekh MD, Attending Physician Gal Parekh MD, Family Physician Gokul Fang NP
== END 2017-04-10 11:20 | disposition home or self-care (01) | DRG 190 ==
LOC: ER 21:04 → 4PCU 22:40
PROVIDERS: ADMIT Internal Medicine
DX: J44.1 Chronic obstructive pulmonary disease with (acute) exacerbation (principal); J12.89 Other viral pneumonia; I11.0 Hypertensive heart disease with heart failure; I50.22 Chronic systolic (congestive) heart failure; E11.65 Type 2 diabetes mellitus with hyperglycemia; I48.91 Unspecified atrial fibrillation; I25.10 Atherosclerotic heart disease of native coronary artery without angina pectoris; I65.29 Occlusion and stenosis of unspecified carotid artery; F17.210 Nicotine dependence, cigarettes, uncomplicated; K21.9 Gastro-esophageal reflux disease without esophagitis; E78.5 Hyperlipidemia, unspecified; I25.5 Ischemic cardiomyopathy; F10.20 Alcohol dependence, uncomplicated; I73.9 Peripheral vascular disease, unspecified; G89.4 Chronic pain syndrome; L97.519 Non-pressure chronic ulcer of other part of right foot with unspecified severity; I25.2 Old myocardial infarction; F43.10 Post-traumatic stress disorder, unspecified; K80.20 Calculus of gallbladder without cholecystitis without obstruction; N40.0 Benign prostatic hyperplasia without lower urinary tract symptoms; F32.9 Major depressive disorder, single episode, unspecified; I44.7 Left bundle-branch block, unspecified; Z87.11 Personal history of peptic ulcer disease; Z95.5 Presence of coronary angioplasty implant and graft; Z79.82 Long term (current) use of aspirin; Z95.1 Presence of aortocoronary bypass graft; Z82.49 Family history of ischemic heart disease and other diseases of the circulatory system